=== PATIENT | male | born 1990 | race Two or more races ===

== ENCOUNTER 2016-07-13 19:59 | Emergency (ER) | payer BC ==
[2016-07-13 20:08] VITALS: TEMP 98; BMI 24.4
[2016-07-13] MEDS ORDERED: METOCLOPRAMIDE HCL INJECTION 10 MG/2 ML VIAL IVPB ONE (20:33)
[2016-07-13] MEDS ORDERED: SODIUM CHLORIDE 1,000 ML IV STA ×2 (20:33→21:40)
[2016-07-13] MEDS ORDERED: FAMOTIDINE 20 MG/50 ML IVPB 50 ML IVPB ONE ×2 (20:33→20:41)
[2016-07-13] MEDS ORDERED: PANTOPRAZOLE SODIUM 40 MG in SODIUM CHLORIDE 100 ML IVPB ONE (20:33)
[2016-07-13] MEDS ORDERED: METOCLOPRAMIDE HCL INJECTION 10 MG/2 ML VIAL ONE (20:41)
[2016-07-13] MEDS ORDERED: PANTOPRAZOLE SODIUM 100 ML IVPB ONE (20:41)
--- NOTE | 2016-07-13 21:01 | PDOC ---
History of Present Illness - General Chief Complaint: Hemoptysis Stated Complaint: VOMITING BLOOD/WEAK Time Seen by Provider: 07/13/16 20:23 History Source: Patient, Family Exam Limitations: No Limitations - History of Present Illness Travel History: No Initial Comments: 07/13/16 20:56 25yo Male patient w/ no significant PmHx presents to ED with family c/o vomiting blood w/ abd pain. Patient states consuming excessive alcohol intake last night until 3 am. He states he woke up around 10 am vomiting. Patient states he tried to drink water, ki grady and soup, but vomiting everything up. He took advil for pain and shortly after "vomited dark blood." Denies fever , CP, back pain, diff breathing, headache, confusion, disorientation or any other complaints at this time. Past History - Travel Traveled outside of the country in the last 30 days: No Close contact w/someone who was outside of country & ill: No - Past Medical History Allergies/Adverse Reactions: Allergies Allergy/AdvReac Type Severity Reaction Status Date / Time No Known Allergies Allergy Verified 07/13/16 20:05 Home Medications: Ambulatory Orders Famotidine [Pepcid -] 40 mg PO BID #28 tablet 07/14/16 Pantoprazole Sodium [Protonix] 40 mg PO DAILY #14 tablet. 07/14/16 - Psycho/Social/Smoking Cessation Hx Anxiety: No Suicidal Ideation: No Smoking History: Current every day smoker Information on smoking cessation initiated: No Hx Alcohol Use: No Drug/Substance Use Hx: No Substance Use Type: None Abd/GI Specific PMHX - Complaint Specific PMHX Colitis: No Diverticulitis: No Gall Bladder Disease: No GERD: No Hepatitis: No Irritable Bowel Synd (IBS): No Pancreatitis: No GI Ulcer Disease: No Review of Systems - Review of Systems Able to Perform ROS?: Yes Is the patient limited Kiswahili proficient: No Constitutional: No: Chills, Fever, Malaise Respiratory: Yes: Hemoptysis. No: Cough, Orthopnea, Shortness of Breath, Stridor, Wheezing, Productive cough Cardiac (ROS): No: Chest Pain, Edema, Lightheadedness, Palpitations, Syncope, Chest Tightness ABD/GI: Yes: Nausea, Poor Fluid Intake, Vomiting, Other (Abdominal Pain). No: Blood Streaked Bowels, Constipated, Diarrhea, Poor Appetite, Rectal Bleeding : No: Burning, Dysuria, Flank Pain, Hematuria, Pain, Urgency Musculoskeletal: No: Back Pain, Joint Pain, Muscle Pain, Neck Pain Integumentary: No: Bruising, Erythema, Rash Neurological: No: Headache, Numbness, Paresthesia, Seizure, Tingling, Tremors, Weakness, Dizziness All Other Systems: Reviewed and Negative *Physical Exam - Vital Signs Last Vital Signs Temp Pulse Resp BP Pulse Ox 98.0 F 60 14 141/74 99 07/13/16 20:06 07/13/16 20:06 07/13/16 20:06 07/13/16 20:06 07/13/16 20:06 - Physical Exam General Appearance: Yes: Nourished, Appropriately Dressed, Mild Distress. No: Apparent Distress, Moderate Distress, Severe Distress Neck: positive: Trachea midline, Normal Thyroid, Supple. negative: Decreased range of motion, Stridor, Lymphadenopathy (R), Lymphadenopathy (L) Respiratory/Chest: positive: Lungs Clear, Normal Breath Sounds. negative: Respiratory Distress, Accessory Muscle Use, Labored Respiration Cardiovascular: positive: Regular Rhythm, Regular Rate. negative: Edema, JVD, Murmur Gastrointestinal/Abdominal: positive: Soft, Increased Bowel Sounds, Tenderness ( Epigastric). negative: Distended, Guarding, Rebound Musculoskeletal: positive: Normal Inspection. negative: CVA Tenderness Extremity: positive: Normal Capillary Refill, Normal Inspection, Normal Range of Motion. negative: Swelling Integumentary: positive: Normal Color, Dry, Warm. negative: Jaundice, Pale, Cold, Clammy, Petechiae, Swelling Neurologic: positive: vinyl cutter II-XII NML intact, Fully Oriented, Alert, Normal Mood/ Affect, Normal Response, Motor Strength / ED Treatment Course - LABORATORY CBC & Chemistry Diagram: 07/13/16 21:06 07/13/16 21:06 Progress Note - Progress Note Progress Note: PATIENT SYMPTOMS HAVE RESOLVE. NO VOMITING OR HEMATEMESIS. PATIENT TOLERATED PO GINGERALE. *DC/Admit/Observation/Transfer Diagnosis at time of Disposition: Peptic ulcer Acute alcohol overingestion Qualifiers: Complication of substance-induced condition: uncomplicated Qualified Code(s): F10.120 - Alcohol abuse with intoxication, uncomplicated - Discharge Dispostion Disposition: HOME Condition at time of disposition: Improved Admit: No - Prescriptions Prescriptions: Famotidine [Pepcid -] 40 mg PO BID #28 tablet Pantoprazole Sodium [Protonix] 40 mg PO DAILY #14 tablet.dr - Referrals Referrals: Noris Morrissey MD [Staff Physician] - - Patient Instructions Printed Discharge Instructions: DI for Peptic Ulcer Additional Instructions: FOLLOW UP WITH DR. MORRISSEY (GASTROENTEROLGY). CALL TO SCHEDULE APPOINTMENT FOR EVALUATION OF STOMACH ULCER. AVOID ALCOHOL, MOTRIN, AND SPICY FOODS. ALSO, FOLLOW UP WITH YOUR PRIMARY CARE PROVIDER. Print Language: SWEDISH
[2016-07-13 21:13] LABS: BASOPHIL 0.4 % (0-2.0); EOSINOPHIL 0.1 % (0-4.5); MCH 27.6 pg (25.7-33.7); MEAN CELL VOLUME 81.1 fl (80-96); MEAN PLT VOLUME 8.7 fl (7.5-11.1); NEUTROPHILS 84.1 % (42.8-82.8); PLATELET COUNT 231 K/MM3 (134-434); RDW 13.6 % (11.9-15.9); WHITE BLOOD COUNT 10.7 K/mm3 (4.0-10.0)
[2016-07-13 21:27] LABS: INR 1.15 (0.82-1.09); PROTHROMBIN TIME (PATIENT) 12.7 SEC (9.98-11.88)
[2016-07-13 21:38] LABS: BILIRUBIN,DIRECT 0.3 mg/dL (0.0-0.2); BILIRUBIN,TOTAL 1.1 mg/dL (0.2-1.0); CALCIUM 9.5 mg/dL (8.5-10.1); MAGNESIUM 1.8 mg/dL (1.8-2.4); TOT PROT 8.4 g/dl (6.4-8.2)
[2016-07-13 23:35] LABS: URINE APPEARANCE CLEAR; URINE BILIRUBIN NEGATIVE (NEGATIVE); URINE BLOOD NEGATIVE (NEGATIVE); URINE COLOR YELLOW; URINE GLUCOSE (UA) NEGATIVE (NEGATIVE); URINE KETONE 2+ (NEGATIVE); URINE LEUK ESTERASE NEGATIVE (NEGATIVE); URINE NITRITE NEGATIVE (NEGATIVE); URINE UROBILINOGEN NEGATIVE E.U./dl (0.2-1.0)
[2016-07-13 23:44] LABS: URINE PROTEIN 1+ (NEGATIVE)
[2016-07-13 23:47] LABS: URINE MUCUS FEW; URINE RBC <1 /hpf (0-3); URINE WBC 3 /hpf (3-5)
[2016-07-14 00:31] VITALS: BP 136/66; PULSE 90
== END 2016-07-14 00:31 | disposition home or self-care (01) ==
LOC: JER 19:59
PROC: 3E0337Z Introduction of Electrolytic and Water Balance Substance into Peripheral Vein, Percutaneous Approach (ICD-10-PCS; principal; 2016-07-13)
PROC: 3E033GC Introduction of Other Therapeutic Substance into Peripheral Vein, Percutaneous Approach (ICD-10-PCS; 2016-07-13)
PROC: 3E033GC Introduction of Other Therapeutic Substance into Peripheral Vein, Percutaneous Approach (ICD-10-PCS; 2016-07-13)
DX: K27.3 Acute peptic ulcer, site unspecified, without hemorrhage or perforation (principal); F10.120 Alcohol abuse with intoxication, uncomplicated
CPT/HCPCS: 36415; 80048; 80076; 81003; 81015; 83735; 84100; 85025; 85610; 99284-25